=== PATIENT | female | born 1985 | race Caucasian/White ===

== ENCOUNTER 2017-04-02 20:40 | Emergency (ER) | payer OTHER ==
[~2017-04-02] VITALS: Ht 170.2 cm; Wt 78.5 kg
[2017-04-03] MEDS ORDERED: DICY20TA PO (01:51)
[2017-04-03] MEDS ORDERED: ZANTAC300 MG PO (01:51)
== END 2017-04-03 02:03 | disposition home or self-care (01) ==
LOC: ER 20:40
DX: K29.70 Gastritis, unspecified, without bleeding (principal)